=== PATIENT | female | born 1950 | race Caucasian/White ===

== ENCOUNTER → 2016-11-20 | Outpatient (CLI) | payer MEDICARE, OTHER ==
[~2016-11-20] MED LIST: ALEN70TA2 PO; ALPR0.5T72 PO; ASP81CT PO; CALC-671 PO; CHOL200018 PO; ESZO3TAB3 PO; FISH OIL 1,2001 EAC1 PO; FOSAMAX; GLUC100016 PO; LISI-556; LOSA25TA5 PO; LOVA10TA; LOVA20TA2 PO; LOVASTATIN; MULTIVITAMIN PO; OMEG1CAP51; OMEP20CA12 PO; RLX60T PO; Vicodin 5/325 PO
--- NOTE | 2016-11-20 18:31 | Diagnostic Imaging Report ---
INDICATION: Pain. COMPARISON: None available. TECHNIQUE: Three radiographs of the left knee dated November 20, 2016. FINDINGS: No evidence of an acute fracture or dislocation. No destructive osseous process. Minimal spurring of the tibial spine. Joint spaces are well maintained. No joint effusion. Calcific densities are identified posterior to the proximal tibia and fibula. IMPRESSION: No acute fracture or dislocation with minimal degenerative changes. Calcific densities posterior to the proximal tibia and fibula. These could relate to vascular calcifications. Additionally, loose bodies within a joint effusion or De La Paz's cyst would be an additional consideration. Comparison to prior imaging is recommended. This can be further evaluated with an MRI of the knee as clinically indicated. Dictated by: Dictated on workstation # [id number]
== END ==
LOC: RAD 17:19
PROVIDERS: ATTEND Internal Medicine
DX: M25.562 Pain in left knee (principal); R93.7 Abnormal findings on diagnostic imaging of other parts of musculoskeletal system
CPT/HCPCS: 73562

== ENCOUNTER → 2017-04-16 | Outpatient (CLI) | payer MEDICARE, OTHER ==
--- NOTE | 2017-04-16 19:15 | Diagnostic Imaging Report ---
Digital mammogram bilateral screening with tomosynthesis. This study was compared to the prior exams of 04/13/2016, 04/28/2015 and 04/07/2014. At this time, there are no current complaints. The current study was also evaluated with a Computer Aided Detection (CAD) system. FINDINGS: There are scattered fibroglandular densities in both breasts which could obscure a lesion. When compared to the prior study, there has been no significant change. There is no primary or secondary sign of malignancy noted. The 3D tomographic views also fail to show any sign of malignancy. IMPRESSION: There is no evidence of malignancy. ACR BI-RADS Category 1: Negative. Result letter will be mailed to the patient. Note: At least 10% of breast cancer is not imaged by mammography. Dictated by: Dictated on workstation # [id number]
== END ==
LOC: RAD 09:27
PROVIDERS: ATTEND Internal Medicine
DX: Z12.31 Encounter for screening mammogram for malignant neoplasm of breast (principal)
CPT/HCPCS: 77067

== ENCOUNTER → 2018-04-30 | Outpatient (CLI) | payer MEDICARE, OTHER ==
--- NOTE | 2018-04-30 09:20 | Diagnostic Imaging Report ---
Indication: Right breast density. Patient presents for additional views. Correlation is made with recent screening study from 04/14/2018. Unilateral right 2-D and 3-D diagnostic mammography was performed including spot compression MLO and 90 degree lateral views. Additional views fail to demonstrate a discrete mass. The area of density noted on screening study appears to show normal dispersion of thyroid glandular elements and was most consistent with superimposed fibroglandular tissue. There are scattered benign calcifications. No malignant calcifications are seen. The right axilla is unremarkable. Impression: BI-RADS category 2. Additional views fail to demonstrate a discrete mass. The patient may return to routine annual screening mammography. ACR BI-RADS Category 2: Benign findings. Result letter will be mailed to the patient. Note: At least 10% of breast cancer is not imaged by mammography. Dictated by: Dictated on workstation # [id number]
== END ==
LOC: RAD 08:18
PROVIDERS: ATTEND Internal Medicine
DX: R92.2 Inconclusive mammogram (principal)

== ENCOUNTER → 2019-04-20 | Outpatient (CLI) | payer MEDICARE, OTHER ==
--- NOTE | 2019-04-20 21:32 | Diagnostic Imaging Report ---
INDICATION: Screening TECHNIQUE: The current study was also evaluated with a Computer Aided Detection (CAD) system. 3-D Tomographic imaging was also performed. COMPARISON: 04/14/2018, 04/16/2017 FINDINGS: There are scattered fibroglandular densities bilaterally. There are a few benign type calcifications. There is no dominant mass, spiculated lesion or suspicious calcifications identified. The skin, nipples and axillae are unremarkable. IMPRESSION: Category 2 benign. ACR BI-RADS Category 2: Benign findings. Result letter will be mailed to the patient. Note: At least 10% of breast cancer is not imaged by mammography. Dictated by: Dictated on workstation # [id number]
== END ==
LOC: RAD 07:56
PROVIDERS: ATTEND Internal Medicine
DX: Z12.31 Encounter for screening mammogram for malignant neoplasm of breast (principal)
CPT/HCPCS: 77067

== ENCOUNTER → 2020-04-22 | Outpatient (CLI) | payer MEDICARE, OTHER ==
--- NOTE | 2020-04-22 14:06 | Diagnostic Imaging Report ---
INDICATION: Routine screening. Comparison is made with prior mammogram from 04/20/2019 and 04/14/2018. 2-D and 3-D bilateral screening mammography was performed with CAD. Scattered fibroglandular densities are identified bilaterally. There are benign calcifications in both breasts. The parenchymal pattern is stable. No new mass or malignant appearing microcalcifications are seen. Axillae are unremarkable. IMPRESSION: BI-RADS category 2 No mammographic features suspicious for malignancy are identified. ACR BI-RADS Category 2: Benign findings. Result letter will be mailed to the patient. Note: At least 10% of breast cancer is not imaged by mammography. Dictated by: Dictated on workstation # [id number]
== END ==
LOC: RAD 09:15
PROVIDERS: ATTEND Internal Medicine
DX: Z12.31 Encounter for screening mammogram for malignant neoplasm of breast (principal)
CPT/HCPCS: 77063; 77067

== ENCOUNTER 2020-11-07 05:27 | Outpatient (RCR) | payer MEDICARE, OTHER ==
[~2020-11-07] VITALS: Ht 162.6 cm; Wt 67.2 kg
[~2020-11-07 05:27] MED LIST changes: +ALPR0.5T7 PO; +CALC-140 PO; +CHOL500037 PO; +OMEG-143 PO; +OMEP-401 PO
== END 2020-11-07 09:07 | disposition home or self-care (01) ==
LOC: PREOP 05:27
PROVIDERS: ATTEND Surgery
DX: Z01.812 Encounter for preprocedural laboratory examination (principal); Z12.11 Encounter for screening for malignant neoplasm of colon; R10.13 Epigastric pain; Z20.822 Contact with and (suspected) exposure to COVID-19
CPT/HCPCS: 87635

== ENCOUNTER 2020-11-09 08:58 | Day surgery (SDC) | payer MEDICARE, OTHER ==
[~2020-11-09] VITALS: Ht 162.6 cm; Wt 67.2 kg
[2020-11-09] MEDS ORDERED: LACTATED RINGERS 1,000 ML IV ONE (09:01)
[2020-11-09] MEDS ORDERED: MIDAZOLAM 2 MG/2 ML (VERSED) VIAL ONE (09:15)
[2020-11-09] MEDS ORDERED: PROPOFOL INJECTION 50 ML IV ONE (09:15)
[2020-11-09 09:20] VITALS: BP 111/80
[2020-11-09] MEDS ORDERED: LACTATED RINGERS 1,000 ML IV STA (09:22)
[2020-11-09] MEDS ORDERED: HURRICAINE EXT TUBE (BENZOCAINE) XX PRN (09:30)
[2020-11-09] MEDS ORDERED: LIDOCAINE JELLY 2% 6 ML SYRINGE ONE (09:34)
[2020-11-09] MEDS ORDERED: HURRICAINE EXT TUBE (BENZOCAINE) ONE (09:35)
[2020-11-09 10:15] VITALS: BP 90/57
[2020-11-09 10:20] VITALS: BP 98/58
[2020-11-09 10:25] VITALS: BP 111/72
--- NOTE | 2020-11-09 10:29 | Progress Note-Pre Operative ---
Pre-Operative Progress Note H&P Reviewed The H&P was reviewed, patient examined and no changes noted. Date Seen by Provider: Nov 09, 2020 Time Seen by Provider: : Date H&P Reviewed: Nov 09, 2020 Time H&P Reviewed: :30 Pre-Operative Diagnosis: GERD, screening o BRE العلي MD Nov 09, 2020 10:29
[2020-11-09] MEDS ORDERED: LIDOCAINE JELLY 2% 6 ML SYRINGE TOP ONE (10:30)
--- NOTE | 2020-11-09 10:31 | Progress Note-Post Operative ---
Post-Operative Progess Note Surgeon (s)/Continuous Mining Machine Operator (s) Surgeon BRE العلي MD Continuous Mining Machine Operator: none Pre-Operative Diagnosis GERD, screening colo Post-Operative Diagnosis reflux esophagitis(stage 2), no HH, mild/mod gastritis. mild chronic stage 2 ext and int hemorrhoids, moderate sigmoid diverticulosis. Procedure & Operative Findings Date of Procedure 11/09/20 Procedure Performed/Findings EGD with bx. colonoscopy. Anesthesia Type mac Estimated Blood Loss Estimated blood loss (mL): minimal Specimens/Packing Specimens Removed ge jxn, antrum BRE العلي MD Nov 09, 2020 10:31
[2020-11-09] MEDS ORDERED: PANT40TA2 PO (10:32)
--- NOTE | 2020-11-09 10:32 | Discharge Inst-Surgical ---
D/C Lap Instructions-KIDO New, Converted, or Re-Newed RX: RX on Chart Follow Up Appt in 2 weeks Activity as tolerated High Fiber Diet 25g or more per day Avoid Alcohol, Caffeine, Spicy [place] and Acid foods. Drink 64 fluid oz or more of fluids per day. Symptoms to Report: Fever over 101 degree F, Nausea/Vomiting If any problems/questions: Contact your physician or go to Emergency Room BRE العلي MD Nov 09, 2020 10:32
[2020-11-09] MEDS ORDERED: ONDANSETRON 4 MG/2 ML (SDV) Z0FRAN IVP PRN (10:45)
[2020-11-09] MEDS ORDERED: morphine INJ 10 MG/ML 1ML (SYR OR VIAL) IVP PRN ×2 (10:45)
[2020-11-09] MEDS ORDERED: ACETAMINOPHEN 325 MG TABLET PO PRN (10:45)
[2020-11-09] MEDS ORDERED: HYDROcodone/APAP 5 MG/325 MG (LORTAB) TAB PO PRN (10:45)
[2020-11-09 10:50] VITALS: BP 125/97
[2020-11-09 10:59] VITALS: BP 125/97
--- NOTE | 2020-11-09 12:02 | Anesthesia-General Post-Op ---
MAC Patient Condition Mental Status/LOC: Same as Preop Cardiovascular: Satisfactory Nausea/Vomiting: Absent Respiratory: Satisfactory Pain: Controlled Complications: Absent Post Op Complications Complications None Follow Up Care/Instructions Patient Instructions None needed. Anesthesiology Discharge Order Discharge Order Patient is doing well, no complaints, stable vital signs, no apparent adverse anesthesia problems. No complications reported per nursing. ROGELIO SANTOYO CRNA Nov 09, 2020 12:02
--- NOTE | 2020-11-09 13:19 | OPERATIVE REPORT ---
DATE OF SERVICE: 11/09/2020 ATTENDING PRIMARY CARE PHYSICIAN: Dr. Dinero. PREOPERATIVE DIAGNOSES: Gastroesophageal reflux disease, screening colonoscopy. POSTOPERATIVE DIAGNOSES: Reflux esophagitis stage II, mild to moderate gastritis. No distal obstructions. Chronic stage II external and internal hemorrhoids, moderate sigmoid diverticulosis. PROCEDURE: EGD with biopsy, colonoscopy. SURGEON: Bre Suárez MD. ANESTHESIA: Monitored anesthesia care. ESTIMATED BLOOD LOSS: Minimal. FINDINGS: Reflux esophagitis stage II, mild to moderate gastritis. No distal obstructions. Chronic stage II external and internal hemorrhoids, moderate sigmoid diverticulosis. DISPOSITION: The patient tolerated the procedure well. INDICATIONS: The patient is a 70-year-old female in need of a screening colonoscopy. She also has had issues with gastroesophageal reflux disease. She reports that she has epigastric burning sensation on an intermittent basis. She states that this was initially mild; however, has worsened over time. She also does have a family history of esophageal cancer with her son having the disease. She is also in need of a screening colonoscopy. Her last colonoscopy was 10 years ago. She does not report any family history of colon cancer. DESCRIPTION OF PROCEDURE: The patient was brought to the endoscopy suite, laid in the left lateral decubitus position. After adequate IV pain and sedative medications and monitored anesthesia care, the mouthpiece was applied. The endoscope was placed in the mouth, visualizing the pharynx and hypopharyngeal region. Vocal cords, epiglottis and vallecula identified and appeared to be normal. The endoscope was then gently intubated at esophageal opening and esophagus insufflated. The endoscope was then advanced through the first, second and third portions of esophagus at the level of the GE junction, a reflux esophagitis stage II identified. There were no ulcers or strictures identified in this region. A biopsy was taken with forceps with visualization of good hemostasis. The endoscope was then advanced in the stomach and endoscope retroflexed. No significant hiatal hernia identified. There was a mild to moderate gastritis. No formal ulcerations, polyps, or any neoplasms. A biopsy was taken of the antrum to rule out H. pylori with visualization of good hemostasis. Endoscope was then advanced to the pylorus and the first and second portion of the duodenum, which appeared normal with no distal obstructions. Endoscope was then slowly withdrawn while taking a second look and suctioning of residual air with no additional findings. We then proceeded with the colonoscopy portion of the procedure and a digital rectal examination was performed, which revealed chronic stage II external and internal hemorrhoids, not actively edematous nor inflamed and no bleeding. Normal sphincter tone was felt and there were no palpable masses. The endoscope was then intubated to anus and rectum gently insufflated. The endoscope was then advanced through the valves of Sellers of the rectum with no polyps or any neoplasms identified. The endoscope was then advanced through the sigmoid colon where a moderate sigmoid diverticulosis identified. There were no mucosal inflammatory changes to indicate any active diverticulitis. The endoscope was then advanced to the remainder of the descending, transverse and ascending colon to the cecum. These segments were normal. There were no polyps or neoplasms identified throughout the colon or rectum. The endoscope was then slowly withdrawn while taking a second look and suctioning of residual air with no additional findings. The patient tolerated the procedure well. We will recommend the necessary lifestyle and diet accommodation including small and more frequent meals, avoidance of eating at night as well as head elevation while lying supine. She also needs to avoid caffeinated beverages, spicy, greasy and acidic foods. We will also start her on Protonix 40 mg daily. We will also recommend a high fiber diet with at least 25 to 30 grams of fiber daily as well as significant amounts of water to promote soft stools on a daily basis and to prevent the propagation of diverticulosis as well as the complications associated with it. If she is asymptomatic, she does not need another colonoscopy for another 10 years. Job ID: [id number] DocumentID: [id number] Dictated Date: 11/09/2020 10:22:52 Nematology Teacher Date: 11/09/2020 13:18:47 Dictated By: BRE SUÁREZ MD
== END 2020-11-09 10:59 | disposition home or self-care (01) ==
LOC: ENDO 08:58
PROVIDERS: ATTEND Surgery
DX: Z12.11 Encounter for screening for malignant neoplasm of colon (principal); K21.00 Gastro-esophageal reflux disease with esophagitis, without bleeding; K29.70 Gastritis, unspecified, without bleeding; K64.1 Second degree hemorrhoids; K57.30 Diverticulosis of large intestine without perforation or abscess without bleeding; I10 Essential (primary) hypertension; E03.9 Hypothyroidism, unspecified; M19.90 Unspecified osteoarthritis, unspecified site; F32.9 Major depressive disorder, single episode, unspecified; E78.00 Pure hypercholesterolemia, unspecified; G47.00 Insomnia, unspecified; Z79.899 Other long term (current) drug therapy; Z88.5 Allergy status to narcotic agent
CPT/HCPCS: 43239; G0121; 88305

== ENCOUNTER → 2021-04-24 | Outpatient (CLI) | payer MEDICARE, OTHER ==
[~2021-04-24] MED LIST changes: +PANT40TA2 PO
--- NOTE | 2021-04-24 11:31 | Diagnostic Imaging Report ---
INDICATION: Routine screening. COMPARISON: 04/22/2020 and 04/20/2019. TECHNIQUE: 2D and 3D bilateral screening mammography was performed with CAD. FINDINGS: Scattered fibroglandular densities are identified bilaterally. The parenchymal pattern is stable. No mass or malignant-appearing microcalcifications are seen. There are scattered benign calcifications. The axillae are unremarkable. IMPRESSION: No mammographic features suspicious for malignancy are identified. ACR BI-RADS Category 2: Benign findings. Result letter will be mailed to the patient. Note: At least 10% of breast cancer is not imaged by mammography. Dictated by: Dictated on workstation # [id number]
== END ==
LOC: RAD 09:00
PROVIDERS: ATTEND Internal Medicine
DX: Z12.31 Encounter for screening mammogram for malignant neoplasm of breast (principal)
CPT/HCPCS: 77063; 77067

== ENCOUNTER → 2021-07-31 | Outpatient (CLI) | payer MEDICARE ==
--- NOTE | 2021-07-31 14:55 | Diagnostic Imaging Report ---
Indication: Chronic cough. TIME OF EXAM: 2:28 PM Comparison is made with prior chest 06/14/2014. Heart size normal. There is ectasia and tortuosity of the descending thoracic aorta. No infiltrates are detected. There is minimal linear atelectasis left mid lung field. No effusion or pneumothorax is seen. Pulmonary vascularity is normal. IMPRESSION: Minimal left perihilar subsegmental atelectasis. Study is otherwise unremarkable. Dictated by: Dictated on workstation # [id number]
== END ==
LOC: RAD 14:04
PROVIDERS: ATTEND Internal Medicine
DX: R05.3 Chronic cough (principal)
CPT/HCPCS: 71045

== ENCOUNTER → 2021-08-09 | Outpatient (CLI) | payer MEDICARE ==
[~2021-08-09] MED LIST changes: +CATHETER FLUSH 10 ML SYR IV PRN; +HOLD METFORMIN - RECEIVED CONTRAST 20 ML VIAL IV SCH; +IOHEXOL 350 MG/ML 100 ML (OMNIPAQUE 350) VIAL IV ONE; +NS 100 ML (IVPB) BAG IV ONE
--- NOTE | 2021-08-09 08:49 | Diagnostic Imaging Report ---
EXAMINATION: CT chest with intravenous contrast. TECHNIQUE: Multiple contiguous axial images were obtained through the chest after the uneventful administration of intravenous contrast. All CT scans use one or more of the following dose optimizing techniques: automated exposure control, MA and/or KvP adjustment based on patient size and exam type or iterative reconstruction. HISTORY: Pulmonary fibrosis COMPARISON: 05/04/2014 FINDINGS: There is no edema or pneumonia. No pleural effusion. No pneumothorax. No suspicious nodules. There is mild left lower lobe atelectasis. No fibrosis. There is no axillary or supraclavicular lymphadenopathy. There is no mediastinal lymphadenopathy. Heart size is normal. There are mild coronary artery calcifications. No pericardial effusion. Aorta is normal in caliber. Limited views of the upper abdomen show mild scarring in the right kidney. There are no suspicious osseus lesions. IMPRESSION: 1. No acute abnormality in the chest. Dictated by: Dictated on workstation # [id number]
== END ==
LOC: RAD 07:55
PROVIDERS: ATTEND Internal Medicine
DX: J84.10 Pulmonary fibrosis, unspecified (principal)
CPT/HCPCS: 71260

== ENCOUNTER 2021-10-12 20:00 | Emergency (ER) | payer MEDICARE ==
[~2021-10-12] VITALS: Ht 163 cm; Wt 70.0 kg
[~2021-10-12 20:00] MED LIST changes: -CATHETER FLUSH 10 ML SYR IV PRN; -HOLD METFORMIN - RECEIVED CONTRAST 20 ML VIAL IV SCH; -IOHEXOL 350 MG/ML 100 ML (OMNIPAQUE 350) VIAL IV ONE; -NS 100 ML (IVPB) BAG IV ONE
[2021-10-12] MEDS ORDERED: ANTACID SUSP 30 ML UDC (MYLANTA) PO ONE (20:15)
[2021-10-12] MEDS ORDERED: LIDOCAINE 2% VISCOUS 15 ML UDC PO ONE (20:15)
[2021-10-12] MEDS ORDERED: ASPIRIN 81 MG CHEW (CHILDREN'S ASA) PO ONE (20:15)
--- NOTE | 2021-10-12 20:17 | ED Chest Pain ---
General Stated Complaint: CHEST PAIN, BACK PAIN Source: patient Exam Limitations: no limitations (AIDEE DALAL APRN) History of Present Illness Date Seen by Provider: Oct 12, 2021 Time Seen by Provider: 20:00 Initial Comments To ER with c/o central chest pain that radiates straight through to the back and between her shoulder blades. This began 1.5 hours ago while at rest. The pain is constant but waxes and wanes in intensity. No fevers no chills. No personal cardiac history. She gets this pain occasionally about once a month and occasionally it goes away with the use of Tums. This evening she could not identify any exacerbating or alleviating factors. She tried laying on the floor without any improvement. She and her are quite active physically and [facility] and she has never associated this chest pain with activity. She is a non-smoker. She has a history of hyperlipidemia Managed with atorvastatin. She follows with Dr. Keen. Timing/Duration: 1 hour, constant Severity/Quality: moderate Location: central Radiation: no radiation Activities at Onset: none ASA po FUEL SYSTEM MAINTENANCE SUPERVISOR: No NTG SL FUEL SYSTEM MAINTENANCE SUPERVISOR: No Associated Symptoms: denies symptoms (AIDEE DALAL APRN) Allergies and Home Medications Allergies Coded Allergies: codeine (Verified Adverse Reaction, Mild, NAUSEA, 06/21/14) Patient Home Medication List Home Medication List Reviewed: Yes (AIDEE DALAL APRN) , 1 TAB PO DAILY, (Reported) Entered as Reported by: JEFFY SOSA on 10/05/092321 Alprazolam (Alprazolam) 0.5 Mg Tablet, 0.5 MG PO PRN, (Reported) Entered as Reported by: RAFA GONZALES on 11/02/20 152 Calcium Carbonate/Vitamin D3 (Calcium + Vitamin D Tablet) 1 Each Tablet, 1 EACH PO DAILY, (Reported) Entered as Reported by: RAFA GONZALES on 11/02/201526 Cholecalciferol (Vitamin D3) (Optimal D3) 1,250 Mcg Capsule, 2,000 UNIT PO DAILY, (Reported) Entered as Reported by: RAFA GONZALES on 11/02/20 152 Lovastatin (Lovastatin) 20 Mg Tablet, 20 MG PO DAILY, (Reported) Entered as Reported by: RAFA GONZALES on 11/02/20 1523 [place]-3 Fatty Acids/Fish Oil ([place]-3 Fish Oil 1,000 mg Sfgl) 1 Each Capsule, 1 EACH PO DAILY, (Reported) Entered as Reported by: RAFA GONZALES on 11/02/20 1523 Omeprazole (Omeprazole) 20 Mg Tab.rap.dr, 20 MG PO BID, (Reported) Entered as Reported by: RAFA GONZALES on 11/02/20 1523 Pantoprazole Sodium (Protonix) 40 Mg Tablet.dr, 40 MG PO DAILY Prescribed by: BRE العلي on 11/09/20 1032 Sucralfate (Sucralfate) 1 Gm Tablet, 1 GM PO QID Prescribed by: AIDEE DALAL on 10/12/21 2229 Review of Systems Review of Systems Constitutional: see HPI EENTM: No Symptoms Reported Respiratory: No Symptoms Reported Cardiovascular: See HPI, Chest Pain Gastrointestinal: No Symptoms Reported Genitourinary: No Symptoms Reported Musculoskeletal: no symptoms reported Skin: no symptoms reported Psychiatric/Neurological: No Symptoms Reported Endocrine: No Symptoms Reported Hematologic/Lymphatic: No Symptoms Reported (AIDEE DALAL APRN) Past Zoeavsk-Ruzgrp-Pfbume Hx Past Medical History Surgeries: Yes (hysterectomy, cholecystectomy, bilat breast biopsy, right foot bunionectomy) Respiratory: No (CHRONIC COUGH) Cardiac: No Neurological: No Reproductive Disorders: No Sexually Transmitted Disease: No Gastrointestinal: No Musculoskeletal: Yes (PLANTAR FASCITIS, ARTHRITIS) Endocrine: No Psychosocial: No Blood Disorders: No (AIDEE DALAL APRN) Physical Exam Vital Signs Vital Signs - First Documented 10/12/21 20:05 Temp 36.3 Pulse 88 Resp 18 B/P (MAP) 164/119 (134) Pulse Ox 98 O2 Delivery Room Air (THANG PAIGE MD) Vital Signs Capillary Refill : (AIDEE DALAL APRN) Height, Weight, BMI Height: 5'3.00" Weight: 154lbs. oz. [id number]; 25.41 BMI Method: General Appearance: No Apparent Distress, WD/WN Neck: Full Range of Motion, Normal Inspection Respiratory: No Accessory Muscle Use, No Respiratory Distress Cardiovascular: Regular Rate, Rhythm, Normal Peripheral Pulses Gastrointestinal: Normal Bowel Sounds, Non Tender, Soft Extremity: Normal Capillary Refill, Normal Inspection Neurologic/Psychiatric: Alert, Oriented x3 Skin: Normal Color, Warm/Dry (AIDEE DALAL APRN) Progress/Results/Core Measures Results/Orders Lab Results Laboratory Tests Test 10/12/21 20:12 10/12/21 22:12 Range/Units White Blood Count 5.3 4.3-11.0 10^3/uL Red Blood Count 4.08 3.80-5.11 10^6/uL Hemoglobin 12.7 11.5-16.0 g/dL Hematocrit 36 35-52 % Mean Corpuscular Volume 89 80-99 fL Mean Corpuscular Hemoglobin 31 25-34 pg Mean Corpuscular Hemoglobin Concent 35 32-36 g/dL Red Cell Distribution Width 12.8 10.0-14.5 % Platelet Count 255 130-400 10^3/uL Mean Platelet Volume 9.4 9.0-12.2 fL Immature Granulocyte % (Auto) 0 % Neutrophils (%) (Auto) 46 42-75 % Lymphocytes (%) (Auto) 36 12-44 % Monocytes (%) (Auto) 11 0-12 % Eosinophils (%) (Auto) 7 0-10 % Basophils (%) (Auto) 1 0-10 % Neutrophils # (Auto) 2.4 1.8-7.8 10^3/uL Lymphocytes # (Auto) 1.9 1.0-4.0 10^3/uL Monocytes # (Auto) 0.6 0.0-1.0 10^3/uL Eosinophils # (Auto) 0.3 0.0-0.3 10^3/uL Basophils # (Auto) 0.0 0.0-0.1 10^3/uL Immature Granulocyte # (Auto) 0.0 0.0-0.1 10^3/uL Prothrombin Time 12.8 12.2-14.7 SEC INR Comment 0.9 0.8-1.4 Activated Partial Thromboplast Time 30 24-35 SEC Sodium Level 136 135-145 MMOL/L Potassium Level 3.5 L 3.6-5.0 MMOL/L Chloride Level 106 98-107 MMOL/L Carbon Dioxide Level 17 L 21-32 MMOL/L Anion Gap 13 5-14 MMOL/L Blood Urea Nitrogen 17 7-18 MG/DL Creatinine 0.76 0.60-1.30 MG/DL Estimat Glomerular Filtration Rate 84 BUN/Creatinine Ratio 22 Glucose Level 128 H 70-105 MG/DL Calcium Level 10.2 H 8.5-10.1 MG/DL Corrected Calcium 8.5-10.1 MG/DL Magnesium Level 2.1 1.6-2.4 MG/DL Total Bilirubin 0.5 0.1-1.0 MG/DL Aspartate Amino Transf (AST/SGOT) 27 5-34 U/L Alanine Aminotransferase (ALT/SGPT) 25 0-55 U/L Alkaline Phosphatase 61 40-136 U/L Myoglobin 22.1 10.0-92.0 NG/ML Troponin I < 0.028 < 0.028 <0.028 NG/ML Total Protein 7.5 6.4-8.2 GM/DL Albumin 4.6 H 3.2-4.5 GM/DL Lipase 37 8-78 U/L (THANG PAIGE MD) My Orders Orders - THANG PAIGE MD Cbc With Automated Diff (10/12/21 20:12) Magnesium (10/12/21 20:12) Chest 1 View, Ap/Pa Only (10/12/21 20:12) Ekg Tracing (10/12/21 20:12) Comprehensive Metabolic Panel (10/12/21 20:12) Myoglobin Serum (10/12/21 20:12) Protime With Inr (10/12/21 20:12) Partial Thromboplastin Time (10/12/21 20:12) O2 (10/12/21 20:12) Monitor-Rhythm Ecg Trace Only (10/12/21 20:12) Ed Iv/Invasive Line Start (10/12/21 20:12) Troponin I Davis (10/12/21 20:12) (THANG PAIGE MD) Medications Given in ED Current Medications Medications Dose Ordered Sig/Emiliano Route Start Time Stop Time Status Last Admin Dose Admin Al Hydrox/Mg Hydrox/Simethicone 30 ml ONCE ONCE PO 10/12/21 20:15 10/12/21 20:16 DC 10/12/21 20:20 30 ML Aspirin 324 mg ONCE ONCE PO 10/12/21 20:15 10/12/21 20:16 DC 10/12/21 20:20 324 MG Lidocaine HCl 15 ml ONCE ONCE PO 10/12/21 20:15 10/12/21 20:16 DC 10/12/21 20:20 15 ML (THANG PAIGE MD) Vital Signs/I&O 10/12/21 10/12/21 20:05 22:54 Temp 36.3 36.3 Pulse 88 74 Resp 18 18 B/P (MAP) 164/119 (134) 151/93 Pulse Ox 98 99 O2 Delivery Room Air Room Air (THANG PAIGE MD) Departure Communication (Admissions) EKG initially at 2005 shows sinus rhythm at [address] segment changes no ectopy. 2105-her pain was rated at 5 out of 10 on arrival. After GI cocktail she rates it at "0-0.5 out of 10"--- essentially complete resolution. We will do a 2-hour troponin and if still negative discharged home. 2245-remains completely asymptomatic after her GI cocktail. Repeat troponin negative. We will discharge home with a prescription for Carafate and have her follow-up with Dr. Keen. (AIDEE DALAL APRN) Impression Primary Impression: Esophagitis Disposition: , SELF-CARE Condition: Stable Departure-Patient Inst. Decision time for Depature: 22:27 (AIDEE DALAL APRN) Referrals: CHANDLER KEEN DO (PCP/Family) Primary Care Physician Patient Instructions: Acid Reflux and Gastroesophageal Reflux Disease in Adults Add. Discharge Instructions: 1. Continue the pantoprazole. Add the sucralfate 4 times a day for 10 days. Follow-up with Dr. Keen, call tomorrow for appointment. Return to ER for any concerns or worsening symptoms. Scripts Sucralfate (Sucralfate) 1 Gm Tablet 1 GM PO QID, #40 TAB Prov: AIDEE DALAL APRN 10/12/21 ATTENDING PHYSICIAN NOTE: I was physically present as attending physician in the emergency department during the care of this patient, but I was not directly involved in the decision making or delivery of care for this patient. (THANG PAIGE MD) Copy Copies To 1: CHANDLER KEEN PETER J APRN Oct 12, 2021 20:17 THANG PAIGE MD Oct 13, 2021 06:47
[2021-10-12 20:20] LABS: BASOPHILS % (AUTO) 1 % (0-10); EOSINOPHILS # (AUTO) 0.3 10^3/uL (0.0-0.3); EOSINOPHILS % (AUTO) 7 % (0-10); HEMATOCRIT 36 % (35-52); HEMOGLOBIN 12.7 g/dL (11.5-16.0); LYMPHOCYTES # (AUTO) 1.9 10^3/uL (1.0-4.0); LYMPHOCYTES % (AUTO) 36 % (12-44); MEAN CORPUSCULAR HEMOGLOBIN 31 pg (25-34); MEAN CORPUSCULAR HGB CONC 35 g/dL (32-36); MEAN CORPUSCULAR VOLUME 89 fL (80-99); MEAN PLATELET VOLUME 9.4 fL (9.0-12.2); MONOCYTES # (AUTO) 0.6 10^3/uL (0.0-1.0); MONOCYTES % (AUTO) 11 % (0-12); NEUTROPHILS # (AUTO) 2.4 10^3/uL (1.8-7.8); NEUTROPHILS % (AUTO) 46 % (42-75); PLATELET COUNT 255 10^3/uL (130-400); WHITE BLOOD COUNT 5.3 10^3/uL (4.3-11.0)
[2021-10-12 20:31] LABS: INR 0.9 (0.8-1.4); PROTHROMBIN TIME PATIENT 12.8 SEC (12.2-14.7)
[2021-10-12 20:33] LABS: ALBUMIN 4.6 GM/DL (3.2-4.5)
[2021-10-12 20:34] LABS: CHLORIDE 106 MMOL/L (98-107); POTASSIUM 3.5 MMOL/L (3.6-5.0); SODIUM 136 MMOL/L (135-145)
[2021-10-12 20:35] LABS: CALCIUM 10.2 MG/DL (8.5-10.1)
[2021-10-12 20:36] LABS: GLUCOSE 128 MG/DL (70-105); TOTAL PROTEIN 7.5 GM/DL (6.4-8.2)
[2021-10-12 20:37] LABS: CARBON DIOXIDE 17 MMOL/L (21-32)
[2021-10-12 20:38] LABS: BILIRUBIN,TOTAL 0.5 MG/DL (0.1-1.0)
[2021-10-12 20:40] LABS: ALKALINE PHOSPHATASE 61 U/L (40-136); CREATININE SERUM 0.76 MG/DL (0.60-1.30); GFR ESTIMATED 84
[2021-10-12 20:41] LABS: BUN/CREATININE RATIO 22
[2021-10-12 20:43] LABS: ALANINE AMINOTRANSFERASE 25 U/L (0-55); MAGNESIUM 2.1 MG/DL (1.6-2.4)
[2021-10-12 20:44] LABS: LIPASE 37 U/L (8-78)
--- NOTE | 2021-10-12 20:45 | Diagnostic Imaging Report ---
EXAMINATION: Chest 1 view. HISTORY: Chest pain. COMPARISON: 07/31/2021. FINDINGS: Heart size and pulmonary vasculature are normal. Tortuous appearance of the aorta. The lungs are clear without consolidation, pleural effusion or pneumothorax. The osseous structures are intact. IMPRESSION: No acute radiographic abnormality in the chest. Dictated by: Dictated on workstation # [id number]
[2021-10-12] MEDS ORDERED: SUCR1TAB PO (22:29)
[2021-10-12 22:54] VITALS: BP 151/93
== END 2021-10-12 23:00 | disposition home or self-care (01) ==
LOC: EDUNIT# 20:00 → ER 20:03
DX: K20.90 Esophagitis, unspecified without bleeding (principal)
CPT/HCPCS: 36415; 71045; 80053; 83690; 83735; 83874; 84484; 85025; 85610; 85730; 93005; 93041

== ENCOUNTER 2022-03-13 20:45 | Emergency (ER) | payer MEDICARE, OTHER ==
[~2022-03-13] VITALS: Ht 162.5 cm; Wt 68.4 kg
[~2022-03-13 20:45] MED LIST changes: +SUCR1TAB PO
[2022-03-13 21:04] LABS: BASOPHILS % (AUTO) 1 % (0-10); EOSINOPHILS # (AUTO) 0.1 10^3/uL (0.0-0.3); EOSINOPHILS % (AUTO) 3 % (0-10); HEMATOCRIT 33 % (35-52); HEMOGLOBIN 11.6 g/dL (11.5-16.0); LYMPHOCYTES # (AUTO) 0.6 10^3/uL (1.0-4.0); LYMPHOCYTES % (AUTO) 14 % (12-44); MEAN CORPUSCULAR HEMOGLOBIN 32 pg (25-34); MEAN CORPUSCULAR HGB CONC 36 g/dL (32-36); MEAN CORPUSCULAR VOLUME 89 fL (80-99); MEAN PLATELET VOLUME 8.9 fL (9.0-12.2); MONOCYTES # (AUTO) 0.4 10^3/uL (0.0-1.0); MONOCYTES % (AUTO) 9 % (0-12); NEUTROPHILS % (AUTO) 73 % (42-75); PLATELET COUNT 211 10^3/uL (130-400); WHITE BLOOD COUNT 4.1 10^3/uL (4.3-11.0)
--- NOTE | 2022-03-13 21:14 | Diagnostic Imaging Report ---
INDICATION: Chest pain FINDINGS: The lungs are clear. No failure, effusion or pneumothorax. IMPRESSION: Stable unremarkable frontal chest. Dictated by: Dictated on workstation # [id number]
[2022-03-13 21:18] LABS: ALBUMIN 4.1 GM/DL (3.2-4.5); PROTHROMBIN TIME PATIENT 13.6 SEC (12.2-14.7)
[2022-03-13 21:20] LABS: CALCIUM 9.2 MG/DL (8.5-10.1)
[2022-03-13 21:21] LABS: TOTAL PROTEIN 6.7 GM/DL (6.4-8.2)
[2022-03-13 21:23] LABS: BILIRUBIN,TOTAL 0.5 MG/DL (0.1-1.0)
[2022-03-13 21:25] LABS: CREATININE SERUM 0.77 MG/DL (0.60-1.30)
[2022-03-13 21:28] LABS: MAGNESIUM 1.8 MG/DL (1.6-2.4)
[2022-03-13] MEDS ORDERED: POTASSIUM CL 10MEQ/50ML IVPB 50 ML IV ONE (21:45)
[2022-03-13] MEDS ORDERED: NS IV 500 ML 500 ML IV ONE (21:45)
[2022-03-13] MEDS ORDERED: ASPIRIN 81 MG CHEW (CHILDREN'S ASA) PO ONE (21:45)
[2022-03-13] MEDS: NITROGLYCERIN 0.4 MG SL TABS BTL 25'S SL PRN ×3 (21:56→22:25)
--- NOTE | 2022-03-13 22:58 | Diagnostic Imaging Report ---
PROCEDURE: CT angiography of the chest with contrast. TECHNIQUE: Multiple contiguous axial images were obtained through the chest after uneventful bolus administration of intravenous contrast. 3D reconstructed CTA MIP acquisitions were also performed. Auto Exposure Controls were utilized during the CT exam to meet ALARA standards for radiation dose reduction. INDICATION: Chest pain. Compared 08/09/2021. FINDINGS: The pulmonary arterial branches are well opacified, widely patent. No filling defect. There was no evidence for pulmonary arterial embolus. The thoracic aorta is also satisfactorily opacified and nonaneurysmal, nonacute, and showed no dissection or evidence for intramural hematoma. Patient has a small pericardial effusion predominantly anteriorly and at the undersurface of the heart measuring 9 mm in thickness. No evidence for tamponade. There is slight bibasilar zones of partial atelectasis but there were no findings suggestive of pulmonary edema or pneumonia. There is no lung mass. There is no suspicious thoracic lymph nodes. No acute soft tissue or osseous chest wall pathology. The axilla unremarkable. The visualized upper abdomen shows widely patent normal caliber abdominal aorta with the takeoff and the visualized portions of the celiac, superior mesenteric and renal arteries also widely patent. No acute upper abdominal abnormality. IMPRESSION: Mild atelectasis. Small chronic pericardial effusion. Intact thoracic aorta and no evidence for PE. No acute appearing abnormality. Dictated by: Dictated on workstation # [id number]
[2022-03-13] MEDS ORDERED: IOHEXOL 350 MG/ML 100 ML (OMNIPAQUE 350) VIAL IV ONE (23:00)
[2022-03-13] MEDS ORDERED: NS 100 ML (IVPB) BAG IV ONE (23:00)
[2022-03-13] MEDS ORDERED: CATHETER FLUSH 10 ML SYR IV PRN (23:00)
[2022-03-14 01:58] LABS: TRIGLYCERIDES 147 MG/DL (<150); VLDL CHOLESTEROL 29 MG/DL (5-40)
[2022-03-14 02:03] LABS: CHOLESTEROL 179 MG/DL (< 200)
[2022-03-14 02:04] LABS: HDL CHOLESTEROL 68 MG/DL (40-60)
[2022-03-14 03:17] VITALS: BP 126/82
--- NOTE | 2022-03-14 03:19 | ED Chest Pain ---
General Chief Complaint: Chest Pain Stated Complaint: CHEST PAIN, BACK PAIN Nursing Triage Note: PT ARRIVAL TO ER WITH COMPLAINT OF CHEST PAIN X1 HOUR. PT STATES THAT IT GOES INTO BACK AND UP NECK INTO EARS. PT STATES THAT SHE HAD SOMETHING LIKE THIS IN JULY AND DIAGNOSED WITH INDEGESTION. 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 PAIN DESCRIBED A HEAVY LIKE PAIN RATED 9/10. PT DID JUST GET SECOND COVID BOOSTER YESTERDAY, BUT HAS HAD NOTHING LIKE THIS WITH OTHER 3 SHOTS. Source: patient Exam Limitations: no limitations History of Present Illness Date Seen by Provider: Mar 13, 2022 Time Seen by Provider: 20:53 Initial Comments This 71-year-old woman presents to the emergency room in significant chest pain that started 1 hour prior to arrival. It goes across the middle of her chest and radiates to her back. She reports having a few similar episodes in the past but not this severe. She had a normal stress test in 2009 but has not had a thorough cardiac work-up since then. She tried taking Mylanta, Rolaids, warm water, and a walk without improvement in her pain. She does have a history of esophagitis and gastritis noted by EGD last year. She reports eating spicy chi li with her neighbor shortly before the episode started. She has no known cardiac history but does have strong family history of heart disease. She reports her pain is 9 out of 10. She received her COVID-19 booster yesterday. Allergies and Home Medications Allergies Coded Allergies: codeine (Verified Adverse Reaction, Mild, NAUSEA, 06/21/14) Patient Home Medication List Home Medication List Reviewed: Yes , 1 TAB PO DAILY, (Reported) Entered as Reported by: JEFFY SOSA on 10/05/092321 Alprazolam (Alprazolam) 0.5 Mg Tablet, 0.5 MG PO PRN, (Reported) Entered as Reported by: RAFA GONZALES on 11/02/20 152 Calcium Carbonate/Vitamin D3 (Calcium + Vitamin D Tablet) 1 Each Tablet, 1 EACH PO DAILY, (Reported) Entered as Reported by: RAFA GONZALES on 11/02/20 152 Cholecalciferol (Vitamin D3) (Optimal D3) 1,250 Mcg Capsule, 2,000 UNIT PO DAILY, (Reported) Entered as Reported by: RAFA GONZALES on 11/02/20 1527 Lovastatin (Lovastatin) 20 Mg Tablet, 20 MG PO DAILY, (Reported) Entered as Reported by: RAFA GONZALES on 11/02/20 152 [place]-3 Fatty Acids/Fish Oil ([place]-3 Fish Oil 1,000 mg Sfgl) 1 Each Capsule, 1 EACH PO DAILY, (Reported) Entered as Reported by: RAFA GONZALES on 11/02/20 152 Omeprazole (Omeprazole) 20 Mg Tab.rap.dr, 20 MG PO BID, (Reported) Entered as Reported by: RAFA GONZALES on 11/02/20 152 Pantoprazole Sodium (Protonix) 40 Mg Tablet.dr, 40 MG PO DAILY Prescribed by: BRE العلي on 11/09/20 103 Sucralfate (Sucralfate) 1 Gm Tablet, 1 GM PO QID Prescribed by: AIDEE DALAL on 10/12/212228 Review of Systems Review of Systems Constitutional: no symptoms reported EENTM: No Symptoms Reported Respiratory: No Symptoms Reported Cardiovascular: See HPI Gastrointestinal: No Symptoms Reported Genitourinary: No Symptoms Reported Musculoskeletal: no symptoms reported Skin: no symptoms reported Psychiatric/Neurological: No Symptoms Reported Endocrine: No Symptoms Reported Past Mwymeky-Iuohoa-Qoqzso Hx Patient Social History Tobacco Use?: No Use of E-Cig and/or Vaping dev: No Substance use?: No Alcohol Use?: No Pt feels they are or have been: No Immunizations Up To Date Influenza Vaccine Up-to-Date: Yes; Up-to-Date First/Initial COVID19 Vaccinat: 10/16/2020 Second COVID19 Vaccination Alvin: 10/16/2020 Third COVID19 Vaccination Date: 2020 COVID19 Vaccine Coat Examiner: Alirio Past Medical History Surgery/Hospitalization HX: GERD, HTN Surgeries: Yes (hysterectomy, theresa, monie br biopsy, right bunionectomy, bronchoscopy) Breast (Biopsy), Gallbladder, Hysterectomy, Orthopedic (Bunionectomy) Respiratory: Yes (Chronic cough) Cardiac: Yes Hypertension Neurological: No Reproductive Disorders: No Sexually Transmitted Disease: No Gastrointestinal: Yes (Gastritis/esophagitis) Gastroesophageal Reflux Musculoskeletal: Yes (PLANTAR FASCITIS, ARTHRITIS) Endocrine: No Psychosocial: No Blood Disorders: No Physical Exam Vital Signs Vital Signs - First Documented 03/13/22 20:48 Temp 36.8 Pulse 72 Resp 14 B/P (MAP) 187/116 (139) Pulse Ox 96 O2 Delivery Room Air Capillary Refill : Less Than 3 Seconds Height, Weight, BMI Height: 5'3.00" Weight: 154lbs. oz. 69.352444tk; 25.00 BMI Method: General Appearance: WD/WN, Moderate Distress HEENT: PERRL/EOMI, Normal ENT Inspection Neck: Normal Inspection; No JVD Respiratory: Chest Non Tender, Lungs Clear, Normal Breath Sounds, No Accessory Muscle Use, No Respiratory Distress Cardiovascular: Regular Rate, Rhythm, No Edema, No Murmur, Normal Peripheral Pulses Gastrointestinal: Normal Bowel Sounds, Non Tender, Soft Extremity: Normal Inspection, Non Tender, No Pedal Edema Neurologic/Psychiatric: Alert, Oriented x3, No Motor/Sensory Deficits, closing specialist II- XII Norm as Tested, Other (Mildly anxious) Skin: Normal Color, Warm/Dry Progress/Results/Core Measures Results/Orders Lab Results Laboratory Tests Test 03/13/22 20:58 03/13/22 21:43 03/14/22 01:40 Range/Units White Blood Count 4.1 L 4.3-11.0 10^3/uL Red Blood Count 3.64 L 3.80-5.11 10^6/uL Hemoglobin 11.6 11.5-16.0 g/dL Hematocrit 33 L 35-52 % Mean Corpuscular Volume 89 80-99 fL Mean Corpuscular Hemoglobin 32 25-34 pg Mean Corpuscular Hemoglobin Concent 36 32-36 g/dL Red Cell Distribution Width 13.8 10.0-14.5 % Platelet Count 211 130-400 10^3/uL Mean Platelet Volume 8.9 L 9.0-12.2 fL Immature Granulocyte % (Auto) 0 % Neutrophils (%) (Auto) 73 42-75 % Lymphocytes (%) (Auto) 14 12-44 % Monocytes (%) (Auto) 9 0-12 % Eosinophils (%) (Auto) 3 0-10 % Basophils (%) (Auto) 1 0-10 % Neutrophils # (Auto) 3.0 1.8-7.8 10^3/uL Lymphocytes # (Auto) 0.6 L 1.0-4.0 10^3/uL Monocytes # (Auto) 0.4 0.0-1.0 10^3/uL Eosinophils # (Auto) 0.1 0.0-0.3 10^3/uL Basophils # (Auto) 0.0 0.0-0.1 10^3/uL Immature Granulocyte # (Auto) 0.0 0.0-0.1 10^3/uL Prothrombin Time 13.6 12.2-14.7 SEC INR Comment 1.0 0.8-1.4 Activated Partial Thromboplast Time 30 24-35 SEC D-Dimer 1.31 H 0.00-0.49 UG/ML Sodium Level 136 135-145 MMOL/L Potassium Level 3.0 L 3.6-5.0 MMOL/L Chloride Level 106 98-107 MMOL/L Carbon Dioxide Level 17 L 21-32 MMOL/L Anion Gap 13 5-14 MMOL/L Blood Urea Nitrogen 10 7-18 MG/DL Creatinine 0.77 0.60-1.30 MG/DL Estimat Glomerular Filtration Rate 82 BUN/Creatinine Ratio 13 Glucose Level 165 H 70-105 MG/DL Calcium Level 9.2 8.5-10.1 MG/DL Corrected Calcium 9.1 8.5-10.1 MG/DL Magnesium Level 1.8 1.6-2.4 MG/DL Total Bilirubin 0.5 0.1-1.0 MG/DL Aspartate Amino Transf (AST/SGOT) 33 5-34 U/L Alanine Aminotransferase (ALT/SGPT) 30 0-55 U/L Alkaline Phosphatase 54 40-136 U/L Myoglobin 21.3 10.0-92.0 NG/ML Troponin I < 0.028 < 0.028 <0.028 NG/ML C-Reactive Protein High Sensitivity 2.81 H 0.00-0.50 MG/DL Total Protein 6.7 6.4-8.2 GM/DL Albumin 4.1 3.2-4.5 GM/DL Influenza Type A (RT-PCR) Not Detected Not Detecte Influenza Type B (RT-PCR) Not Detected Not Detecte SARS-CoV-2 RNA (RT-PCR) Not Detected Not Detecte Triglycerides Level 147 <150 MG/DL Cholesterol Level 179 < 200 MG/DL LDL Cholesterol Direct 83 1-129 MG/DL VLDL Cholesterol 29 5-40 MG/DL HDL Cholesterol 68 H 40-60 MG/DL My Orders Orders - THANG PAIGE MD Ekg Tracing (03/13/22 20:49) Cbc With Automated Diff (03/13/22 20:51) Magnesium (03/13/22 20:51) Chest 1 View, Ap/Pa Only (03/13/22 20:51) Comprehensive Metabolic Panel (03/13/22 20:51) Myoglobin Serum (03/13/22 20:51) Protime With Inr (03/13/22 20:51) Partial Thromboplastin Time (03/13/22 20:51) O2 (03/13/22 20:51) Monitor-Rhythm Ecg Trace Only (03/13/22 20:51) Lipid Panel (03/14/22 06:00) Ed Iv/Invasive Line Start (03/13/22 20:51) Troponin I Patti (03/13/22 20:51) Ekg Tracing (03/13/22 21:36) Nitroglycerin 0.4 Mg Btl 25's (Nitrostat (03/13/22 21:45) Aspirin Chewable Tablet (Baby Aspirin Ch (03/13/22 21:45) Fibrin Degradation Products (03/13/22 21:36) Covid 19 Inhouse Test (03/13/22 21:37) Influenza A And B By Pcr (03/13/22 21:37) Hs C Reactive Protein (03/13/22 21:38) Ns Iv 500 Ml (Sodium Chloride 0.9%) (03/13/22 21:45) Potassium Cl 10meq/50ml Ivpb (Kcl 10 Meq (03/13/22 21:45) Ct Angio Chest W (03/13/22 22:18) Iohexol Injection (Omnipaque 350 Mg/Ml 1 (03/13/22 23:00) Sodium Chloride Flush (Catheter Flush Sy (03/13/22 23:00) Ns (Ivpb) (Sodium Chloride 0.9% Ivpb Bag (03/13/22 23:00) Troponin I Patti (03/14/22 02:45) Ekg Tracing (03/13/22:22) Medications Given in ED Current Medications Medications Dose Ordered Sig/Emiliano Route Start Time Stop Time Status Last Admin Dose Admin Aspirin 324 mg ONCE ONCE PO 03/13/22 21:45 03/13/22 21:46 DC 03/13/22 21:56 324 MG Iohexol 100 ml ONCE ONCE IV 03/13/22 23:00 03/13/22 23:01 DC 03/13/22 22:57 85 ML Nitroglycerin 0.4 mg UD PRN SL 03/13/22 21:45 03/13/22 22:27 DC 03/13/22 22:25 0.4 MG Potassium Chloride 50 ml @ 50 mls/hr ONCE ONCE IV 03/13/22 21:45 03/13/22 22:44 DC 03/13/22 21:56 50 MLS/HR Sodium Chloride 10 ml NEEDED PRN IV 03/13/22 23:00 03/14/22 03:35 DC 03/13/22 22:57 10 ML Sodium Chloride 100 ml ONCE ONCE IV 03/13/22 23:00 03/13/22 23:01 DC 03/13/22 22:57 80 ML Sodium Chloride 500 ml @ 0 mls/hr Q0M ONCE IV 03/13/22 21:45 03/13/22 21:46 DC 03/13/22 21:55 500 MLS/HR Vital Signs/I&O 03/13/22 03/14/22 20:48 03:17 Temp 36.8 Pulse 72 76 Resp 14 17 B/P (MAP) 187/116 (139) 126/82 Pulse Ox 96 99 O2 Delivery Room Air Room Air Blood Pressure Mean: 139 Progress Progress Note : Progress Note Patient was treated with nitroglycerin and aspirin. This resolved her chest pain and her blood pressure improved significantly. Potassium was replaced by IV route. Patient was offered admission for further evaluation of her chest pain. She declined in favor of cardiac rule out in the ER. A 4-hour troponin level was obtained along with serial EKGs. These were unremarkable and patient remained pain-free. She was discharged with strict return precautions. See discharge instructions. EKG #1: EKG Time: 20:53 Rate: 77 Rhythm: Normal Sinus Intervals: Normal Comment Normal sinus rhythm with no ST elevation or depression. No abnormal intervals or axis deviation. EKG #2: EKG Time: 21:39 Rate: 77 Rhythm: Normal Sinus Intervals: Normal ECG Impression: Normal Comment Normal sinus rhythm with no ST elevation or depression. No abnormal intervals or axis deviation. No dynamic change from prior. EKG #3: EKG Time: 01:36 Rate: 78 Rhythm: Normal Sinus ECG Impression: Normal Comment Normal sinus rhythm with no ST elevation or depression. No abnormal intervals or axis deviation. No significant change from prior. Diagnostic Imaging Diagonstic Imaging: Xray Plain Films/CT/US/NM/MRI: chest Comments NAME: DAFNE JASSO I [facility] REC#: [id number] PT STATUS: REG ER : 1950 PHYSICIAN: THANG PAIGE MD ADMIT DATE: 03/13/22/ER Signed Date of Exam:03/13/22 CHEST 1 VIEW, AP/PA ONLY INDICATION: Chest pain FINDINGS: The lungs are clear. No failure, effusion or pneumothorax. IMPRESSION: Stable unremarkable frontal chest. Dictated by: Dictated on workstation # [id number] Dict: 03/13/222106 Trans: 03/13/222118 [facility] [id number] Interpreted by: ARI MOYA Electronically signed by: ARI MOYA 03/13/222118 Diagonstic Imaging: CT Plain Films/CT/US/NM/MRI: chest Comments CT angiogram reviewed by me and report reviewed. See report below: NAME: DAFNE JASSO I [facility] REC#: [id number] PT STATUS: REG ER : 1950 PHYSICIAN: THANG PAIGE MD ADMIT DATE: 03/13/22/ER Signed Date of Exam:03/13/22 CT ANGIO CHEST W PROCEDURE: CT angiography of the chest with contrast. TECHNIQUE: Multiple contiguous axial images were obtained through the chest after uneventful bolus administration of intravenous contrast. 3D reconstructed CTA MIP acquisitions were also performed. Auto Exposure Controls were utilized during the CT exam to meet ALARA standards for radiation dose reduction. INDICATION: Chest pain. Compared 08/09/2021. FINDINGS: The pulmonary arterial branches are well opacified, widely patent. No filling defect. There was no evidence for pulmonary arterial embolus. The thoracic aorta is also satisfactorily opacified and nonaneurysmal, nonacute, and showed no dissection or evidence for intramural hematoma. Patient has a small pericardial effusion predominantly anteriorly and at the undersurface of the heart measuring 9 mm in thickness. No evidence for tamponade. There is slight bibasilar zones of partial atelectasis but there were no findings suggestive of pulmonary edema or pneumonia. There is no lung mass. There is no suspicious thoracic lymph nodes. No acute soft tissue or osseous chest wall pathology. The axilla unremarkable. The visualized upper abdomen shows widely patent normal caliber abdominal aorta with the takeoff and the visualized portions of the celiac, superior mesenteric and renal arteries also widely patent. No acute upper abdominal abnormality. IMPRESSION: Mild atelectasis. Small chronic pericardial effusion. Intact thoracic aorta and no evidence for PE. No acute appearing abnormality. Dictated by: Dictated on workstation # [id number] Dict: 03/13/22 2247 Trans: 03/13/222305 [facility] [id number] Interpreted by: ARI MOYA Electronically signed by: ARI MOYA 03/13/222305 Departure Impression Primary Impression: Chest pain Qualified Codes: R07.9 - Chest pain, unspecified Additional Impression: Hypokalemia Disposition: 01 HOME, SELF-CARE Condition: Improved Departure-Patient Inst. Decision time for Depature: 03:15 Referrals: CHANDLER KEEN DO (PCP/Family) Primary Care Physician ELIZABETH PARDO MD FACP FACC CCDS KUSUM NETTLES MD, DAVID L JR, MD Patient Instructions: Chest Pain Add. Discharge Instructions: Although your chest pain could be caused by esophagitis and gastroesophageal reflux, presence of coronary artery disease cannot be ruled out in the emergency room setting. This necessitates follow-up in the outpatient setting for further cardiac evaluation. Please work with your primary care provider to seek cardiology consultation and stress testing. If you have insurance that does not require referral, you may contact the chart calculator's office directly. A list of chart calculator is provided below. Take aspirin 81 mg daily until otherwise instructed. Return to the emergency room if you have recurrent episodes of chest pain. To reduce risk of problems related to acid reflux and gastritis, please avoid the following: Eating large meals, eating close to bedtime, caffeine, carbonation, chocolate, caffeine, citrus fruits and juices, tomato products, mints, spicy foods, NSAID medications such as ibuprofen or naproxen, alcohol, tobacco, fatty or greasy foods, or anything else you know irritates your stomach. You additionally may wish to add Pepcid (famotidine) 20 mg twice daily for a week or two to boost your antacid therapy. Also consider consulting with your surgeon regarding repeat endoscopy (EGD). Call your doctor with questions or concerns. Return to the ER if you have any other urgent health concerns. All discharge instructions reviewed with patient and/or family. Voiced understanding. Copy Copies To 1: BRE العلي MD Copies To 2: CHANDLER KEEN JOSHUA T MD Mar 14, 2022 03:19
== END 2022-03-14 03:35 | disposition home or self-care (01) ==
LOC: EDUNIT# 20:45 → ER 20:47
DX: R07.89 Other chest pain (principal); E87.6 Hypokalemia; I10 Essential (primary) hypertension; Z20.822 Contact with and (suspected) exposure to COVID-19
CPT/HCPCS: 36415; 71045; 71275; 80053; 80061; 83735; 83874; 84484; 85025; 85379; 85610; 85730; 86141; 87636; 93005; 93041

== ENCOUNTER → 2022-03-20 | Outpatient (CLI) | payer MEDICARE, OTHER ==
[~2022-03-20] MED LIST changes: +RT-ALBUTEROL SULF 2.5 MG/3 ML PRE-MIX VIAL INH ONE
== END ==
LOC: RT 13:00
PROVIDERS: ATTEND Internal Medicine
DX: R05.9 Cough, unspecified (principal)
CPT/HCPCS: 94060; 94726; 94729

== ENCOUNTER → 2022-04-02 | Outpatient (CLI) | payer MEDICARE, OTHER ==
[~2022-04-02] MED LIST changes: -RT-ALBUTEROL SULF 2.5 MG/3 ML PRE-MIX VIAL INH ONE
== END ==
LOC: CARD 12:00
PROVIDERS: ATTEND Internal Medicine
DX: I51.7 Cardiomegaly (principal); I35.8 Other nonrheumatic aortic valve disorders; I31.3 Pericardial effusion (noninflammatory)
CPT/HCPCS: 93306

== ENCOUNTER → 2022-04-10 | Outpatient (CLI) | payer MEDICARE, OTHER ==
[~2022-04-10] MED LIST changes: +CATHETER FLUSH 10 ML SYR IVP PRN; +REGADENOSON 0.4 MG/5 ML SYR (LEXISCAN) IV ONE
[2022-04-10 08:09] VITALS: BP 160/97
--- NOTE | 2022-04-10 16:39 | Cardiology Stress Test Report ---
Stress Test Report Date of Procedure/Referring: Date of Procedure: Apr 10, 2022 PCP Shyann Dinero DO Admitting Physician Admitting Physician: Attending Physician: Shyann Dinero DO Indications: cp Baseline Vital Signs Vital Signs Date Time Temp Pulse Resp B/P (MAP) Pulse Ox O2 Delivery O2 Flow Rate FiO2 04/10/22 08:09 68 160/97 (118) Summary: Patient receive a resting and stress dose of Myoview, images were acquired and reviewed in the short axis view, horizontal long axis view and vertical long axis view. TID: 1.05 SSS: 3 SDS: 3 EF: 73 1. Breast attenuation with mild decrease uptake at the mid to apical a nterolateral wall with mild reversibility, most probably secondary to breast attenuation 2. Normal left ventricular size, ejection fraction 73% Copy Copies To 1: SHYANN DINERO BASHAR J MD Apr 10, 2022 16:39
== END ==
LOC: CARD 07:00
PROVIDERS: ATTEND Internal Medicine
DX: R07.9 Chest pain, unspecified (principal)
CPT/HCPCS: 78452; 93017; A9502

== ENCOUNTER → 2022-05-01 | Outpatient (CLI) | payer MEDICARE, OTHER ==
[~2022-05-01] MED LIST changes: -CATHETER FLUSH 10 ML SYR IVP PRN; -REGADENOSON 0.4 MG/5 ML SYR (LEXISCAN) IV ONE
--- NOTE | 2022-05-01 11:17 | Diagnostic Imaging Report ---
INDICATION: Routine screening. Comparison is made with prior mammogram of 04/24/2021 and 04/22/2020. 2-D and 3-D bilateral screening mammography was performed with CAD. Scattered fibroglandular densities are identified bilaterally. There is a density in the upper and outer aspect of the right breast which appears more prominent than prior exams. Additional views are recommended. The left breast is unremarkable. There are scattered benign calcifications bilaterally. No malignant-appearing microcalcifications are seen. Axillae are unremarkable. IMPRESSION: Right breast density. Additional views recommended for further evaluation. ACR BI-RADS Category 0: Incomplete. (Needs additional imaging evaluation). Result letter will be mailed to the patient. Note: At least 10% of breast cancer is not imaged by mammography. BI-RADS Category 0 Dictated by: Dictated on workstation # [id number]
--- NOTE | 2022-05-01 13:28 | Diagnostic Imaging Report ---
INDICATION: Postmenopausal state. COMPARISON: 12/01/2015 FINDINGS: AP Spine L2-L4: [BMD (g/cm2): 0.903] [T-Score: -2.5] [Z-Score: -1.0] [BMD Previous: 0.935] [BMD % Change: -3.4]* LT Hip Neck: [BMD (g/cm2): 0.765] [T-Score: -2.0] [Z-Score: -0.3] LT Hip Total: [BMD (g/cm2):0.913] [T-Score:-0.8] [Z-Score: 0.7] [BMD Previous: 0.905] [BMD % Change: 0.9] RT Hip Neck: [BMD (g/cm2):0.738] [T-Score:-2.2] [Z-Score:-0.5] RT Hip Total: [BMD (g/cm2):0.849] [T-score:-1.3] [Z-Score:0.2] [BMD Previous:0.888] [BMD % Change:-4.4] *Indicates significant change from prior examination based on 95% confidence level. World Health Organization criteria for BMD interpretation classify patients as Normal (T-score at or above -1.0), Osteopenic (T-score between -1.0 and -2.5) or Osteoporotic (T-score at or below -2.5). LIMITATIONS AND MODIFICATION: None. FRACTURE RISK (FRAX SCORE): The ten year probability of (%): Major Osteoporotic Fracture: [13.2] Hip Fracture: [3.0] IMPRESSION: 1. Osteoporosis. 2. Bone mineral density within the lumbar spine has significantly decreased since the prior examination in 2015. Additionally, bone mineral density within the hips has also simply decreased since the prior examination 2015. 3. See below National Osteoporosis Foundation guidelines on when to potentially initiate pharmacologic therapy. Based on the National Osteoporosis Foundation Guidelines, pharmacologic treatment should be initiated in any of the following, unless clinical conditions suggest otherwise: * Any patient with prior fragility fracture of the hip or vertebrae. A spine fracture indicates 5X risk for subsequent spine fracture and 2X risk for subsequent hip fracture. * Osteoporosis (T-score <-2.5). * Postmenopausal women and men age 50 and older with low bone mass/osteopenia (T-score between -1.0 and -2.5) by DXA and 10-year major osteoporotic fracture greater than 20% or a 10-year probability of hip fracture greater than 3%. These fracture risks are supplied above in the FRAX score, if applicable. * Clinician judgement and/or patient preferences may indicate treatment for people with 10-year fracture probabilities above or below these levels. Dictated by: Dictated on workstation # [id number]
== END ==
LOC: RAD 09:24
PROVIDERS: ATTEND Internal Medicine
DX: Z12.31 Encounter for screening mammogram for malignant neoplasm of breast (principal); M81.0 Age-related osteoporosis without current pathological fracture; Z78.0 Asymptomatic menopausal state
CPT/HCPCS: 77063; 77067; 77080

== ENCOUNTER → 2022-05-23 | Outpatient (CLI) | payer MEDICARE, OTHER ==
--- NOTE | 2022-05-24 08:34 | Diagnostic Imaging Report ---
Indication: Right breast density. Patient presents for additional views. Correlation is made with screening study from 05/01/2022. Unilateral right 2-D and 3-D diagnostic mammography was performed. This includes spot compression CC, ML and MLO views as well as conventional 90 degrees lateral views. Additional views fail to demonstrate a discrete mass. The density noted on screening mammogram appears to disperse with additional views and most likely represent superimposed tissue. There are benign calcifications present. No malignant-appearing microcalcifications are identified. IMPRESSION: BI-RADS Category 2 Additional views fail to demonstrate a discrete mass. The patient may return to routine annual screening mammography. ACR BI-RADS Category 2: Benign findings. Result letter will be mailed to the patient. Note: At least 10% of breast cancer is not imaged by mammography. Dictated by: Dictated on workstation # [id number]
== END ==
LOC: RAD 08:58
PROVIDERS: ATTEND Internal Medicine
DX: N63.10 Unspecified lump in the right breast, unspecified quadrant (principal); R92.2 Inconclusive mammogram
CPT/HCPCS: 77065; G0279

== ENCOUNTER 2022-08-01 13:42 | Outpatient (CLI) | payer MEDICARE, OTHER | END 2022-08-01 14:01 | LOC: SLEEP 13:42 | PROVIDERS: ATTEND Otolaryngology Otolaryngology/Facial Plastic Surgery | DX: G47.33 Obstructive sleep apnea (adult) (pediatric) (principal); I10 Essential (primary) hypertension; G47.00 Insomnia, unspecified; I27.20 Pulmonary hypertension, unspecified | CPT/HCPCS: G0399 ==

== ENCOUNTER → 2022-11-20 | Outpatient (CLI) | payer MEDICARE, OTHER ==
[~2022-11-20] VITALS: Wt 68.4 kg
[~2022-11-20] MED LIST changes: +ZOLEDRONATE (RECLAST) 5 MG/100 ML IV ONE
[2022-11-20 11:06] VITALS: BP 139/92
== END ==
LOC: SDC 10:43
PROVIDERS: ATTEND Internal Medicine
DX: M81.0 Age-related osteoporosis without current pathological fracture (principal); Z79.899 Other long term (current) drug therapy
CPT/HCPCS: 96365

== ENCOUNTER → 2023-05-17 | Outpatient (CLI) | payer MEDICARE, OTHER ==
[~2023-05-17] MED LIST changes: -ZOLEDRONATE (RECLAST) 5 MG/100 ML IV ONE
--- NOTE | 2023-05-17 10:29 | Diagnostic Imaging Report ---
Indication: Routine screening. Comparison is made with prior mammograms from 05/01/2022 and 04/24/2021. 2-D and 3-D bilateral screening mammography was performed with CAD. Scattered fibroglandular densities are identified bilaterally. The parenchymal pattern is stable. There are benign calcifications bilaterally. Axillae are unremarkable. No mass or malignant-appearing microcalcifications are seen. IMPRESSION: BI-RADS Category 2 No mammographic features suspicious for malignancy are identified. ACR BI-RADS Category 2: Benign findings. Result letter will be mailed to the patient. Note: At least 10% of breast cancer is not imaged by mammography. Dictated by: Dictated on workstation # [id number]
== END ==
LOC: RAD 08:28
PROVIDERS: ATTEND Internal Medicine
DX: Z12.31 Encounter for screening mammogram for malignant neoplasm of breast (principal)
CPT/HCPCS: 77063; 77067